=== PATIENT | male | born 1965 | race Caucasian/White ===

== ENCOUNTER 2025-01-17 23:25 | Inpatient (IN) | payer OTHER ==
[~2025-01-17] VITALS: Ht 195.6 cm; Wt 127.7 kg
[~2025-01-17 23:25] MED LIST: ALBU90OI6 INH; CIPR500 PO; GABA400 PO; GLYB5 PO; INSULANPEN SC; METF500 PO; [UNRECOGNIZED DRUG - REMARK]
[2025-01-18] VITALS (18 sets, daily range): BP systolic 101–151; BP diastolic 66–100
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
[2025-01-18] MEDS ORDERED: Ondansetron HCl 2 MG / ML 2ML Vial IV PRN (01:30)
[2025-01-18] MEDS ORDERED: FLU VACC TS2025-26(6MOS UP)/PF 45 MCG/0.5 ML SYRINGE IM SCH (01:30)
[2025-01-18] MEDS ORDERED: FentaNYL Citrate 50 MCG/ML 2 ML Injection IV PRN (01:30)
[2025-01-18 01:32] LABS: BASOPHILS ABSOLUTE AUTO 0.07 K/mm3 (0.00-0.23); BASOPHILS PERCENT AUTO 1 % (0-2); EOSINOPHILS ABSOLUTE AUTO 0.07 K/mm3 (0.00-0.68); EOSINOPHILS PERCENT AUTO 1 % (0-6); Hematocrit 38.7 % (37.0-53.0); Hemoglobin 13.6 g/dL (13.5-17.5); IMMATURE GRAN ABSOLUTE AUTO 0.62 K/mm3 (0.00-0.10); IMMATURE GRAN PERCENT AUTO 4 % (0-1); LYMPHOCYTES ABSOLUTE AUTO 1.39 K/mm3 (0.84-5.20); LYMPHOCYTES PERCENT AUTO 9 % (21-46); MONOCYTES ABSOLUTE AUTO 1.50 K/mm3 (0.16-1.47); MONOCYTES PERCENT AUTO 10 % (4-13); Mean Corpuscular HGB Conc 35.1 g/dL (31.5-36.5); Mean Corpuscular Volume 84 fL (80-100); NEUTROPHILS ABSOLUTE AUTO 11.31 K/mm3 (1.96-9.15); NEUTROPHILS PERCENT AUTO 76 % (41-73); NRBC ABSOLUTE 0.00 K/mm3 (0.00-0.02); NRBC Auto 0.0 /100 WBC (0.0-0.2); Platelet Count 283 K/mm3 (150-400); RDW Coefficient Variation 12.6 % (11.7-14.2); RDW Standard Deviation 38.4 fL (35.1-46.3)
[2025-01-18] MEDS ORDERED: NS 1,000 ML IV SCH (01:35)
[2025-01-18 01:52] LABS: Prothrombin Time Results 11.8 Sec (9.7-11.5)
[2025-01-18 01:57] LABS: Magnesium, Blood 1.9 mg/dL (1.6-2.4)
[2025-01-18] MEDS ORDERED: Vancomycin (Pharmacy Consult) IV SCH (02:00)
[2025-01-18 02:16] LABS: Alanine Aminotransfer (ALT/SGP 13 U/L (12-78); Albumin, Blood 2.4 g/dL (3.4-5.0); Albumin/Globulin Ratio 0.5 (0.8-1.8); Anion Gap 14 mmol/L (3-11); Aspartate Aminotrans (AST/SGOT 6 U/L (12-37); Bilirubin, Total 0.6 mg/dL (0.1-1.0); Blood Urea Nitrogen 46 mg/dL (8-24); CO2, Blood 23 mmol/L (21-32); Calcium, Blood 9.1 mg/dL (8.5-10.1); Chloride, Blood 88 mmol/L (98-108); Creatinine, Blood 1.85 mg/dL (0.60-1.20); Globulin, Blood 4.6 g/dL (2.2-4.0); Glucose, Blood 786 mg/dL (70-99); Phosphorus, Blood 2.9 mg/dL (2.5-4.9); Potassium, Blood 4.8 mmol/L (3.5-5.5); Sodium, Blood 120 mmol/L (136-145); Total Protein, Blood 7.0 g/dL (6.4-8.2)
[2025-01-18] MEDS ORDERED: Insulin Human Regular 100 UNIT in NS 100 ML IV SCH (02:35)
[2025-01-18] MEDS ORDERED: Cefepime HCl 1,000 MG in NS 100 ML IV SCH (03:07)
--- NOTE | 2025-01-18 03:15 | NUR ---
TRANSFER TO ICU LABS RESULTED AND REPORTED TO HOSPITALIST. PATIENT TO BE TRANSFERRED TO ICU FOR INSULIN GTT. NOTIFIED PATIENT AND WHO IS AT BEDSIDE. PATIENT VOIDED APPROX 400ML URINE PRIOR TO TRANSFER. PATIENT'S WOUND BEGAN TO DRAIN SEROSANGUINEOUS, WRAPPED LIGHTLY IN ABSORBANT PAD AND SECURED. TRANSFERRED WITH NS INFUSING VIA WC BY THIS RN AND RACHEL BOLANOS WITHOUT INCIDENT. BRIEF BEDSIDE REPORT PROVIDED TO ORE GRADER.
[2025-01-18 04:28] LABS: Glucose, Blood 712 mg/dL (70-99)
[2025-01-18 05:45] LABS: Glucose, Blood 531 mg/dL (70-99)
--- NOTE | 2025-01-18 06:41 | NUR ---
End of Shift Summary Recieved pt around 0330 , insulin drip started per EMR , at .01 unit/kg for a rate of 12.5 unit/hr . Fluids continued from PCU , at bedside. In agreement with previous assesment and noteable findings charted.
[2025-01-18] MEDS ORDERED: Insulin Human Lispro 100 Units/ML 3ML Syringe SC SCH ×3 (07:30→16:30)
[2025-01-18 07:32] LABS: Anion Gap 9.0 mmol/L (3-11); Blood Urea Nitrogen 47.0 mg/dL (8-24); CO2, Blood 26.0 mmol/L (21-32); Calcium, Blood 9.7 mg/dL (8.5-10.1); Chloride, Blood 96.0 mmol/L (98-108); Creatinine, Blood 1.73 mg/dL (0.60-1.20); Glucose, Blood 282.0 mg/dL (70-99); Potassium, Blood 4.2 mmol/L (3.5-5.5); Sodium, Blood 127.0 mmol/L (136-145)
[2025-01-18] MEDS ORDERED: D5W-1/2NS 1,000 ML IV SCH (08:05)
[2025-01-18] MEDS ORDERED: Insulin Glargine-Yfgn 100 Unit/mL 3 ML SYR SC ONE (08:45)
[2025-01-18] MEDS ORDERED: Insulin Glargine 100 Unit/ML 3 ML SYR SC ONE (08:55)
[2025-01-18] MEDS ORDERED: Lactobacil 2-S.Thermo-Bifido 1 1 Cap PO SCH (09:00)
--- NOTE | 2025-01-18 12:26 | NUR ---
DR. KELLER IN TO SEE PT WITH AT BEDSIDE. PT INFORMED OF RESULTS OF XRAY AND PT WILL NEED TO SEE AN ORTHOPEDIC DOCTOR FOR AMPUTATION. PT IS AGITATED STATING HE WANTS TO LEAVE. WANTING ALL LINES AND IV'S REMOVED. SPOKE WITH PT ABOUT WAITING TO SPEAK WITH SURGEON FIRST. WHEN RN LEFT THE ROOM PT GOT OOB TO BATHROOM AND DISCONNECTED LINES. WHEN RN BACK TO THE ROOM PT SETTLED INTO BED AND ALLOWED RN TO CONNECT BACK TO THE MONITOR. R FOOT IS OPEN TO AIR FOR DOCTOR REVIEW. ALLOWING PT TO DECOMPRESS AND OFFERING ANSWERS TO ANY QUESTIONS.
--- NOTE | 2025-01-18 13:23 | NUR ---
DR. MILLER TO BEDSIDE, SPOKE WITH PT AND ABOUT OPTIONS AND NEED FOR AMPUTATION. PT AND MADE AWARE OF POTENTIAL FOR INFECTION TO SPREAD RAPIDLY AND LIFE THREATING COMPLICATIONS THAT COULD ARISE. PT AND ARE GOING TO DISCUSS IT AND WILL MAKE A DECISION.
[2025-01-18 14:23] LABS: Anion Gap 9.0 mmol/L (3-11); Blood Urea Nitrogen 45.0 mg/dL (8-24); CO2, Blood 26.0 mmol/L (21-32); Calcium, Blood 9.5 mg/dL (8.5-10.1); Chloride, Blood 96.0 mmol/L (98-108); Creatinine, Blood 1.49 mg/dL (0.60-1.20); Glucose, Blood 341.0 mg/dL (70-99); Potassium, Blood 4.5 mmol/L (3.5-5.5); Sodium, Blood 126.0 mmol/L (136-145)
--- NOTE | 2025-01-18 14:45 | NUR ---
PT'S DAUGHTER IS ON HER WAY FROM [place]. PT WILL NOT MAKE ANY DECISIONS UNTIL SHE GETS HERE AND IS EASILY AGITATED WITH ANY DESCUSSIONS ABOUT MEDICAL DECISIONS.
[2025-01-18] MEDS ORDERED: Clindamycin 900mg in D5W 50ML 50 ML IV SCH (16:00)
--- NOTE | 2025-01-18 18:01 | NUR ---
DR. MILLER CAME BY AGAIN ALE TO SPEAK WITH PT AND FAMILY ABOUT PLAN OF CARE. PT IS NOT WANTING TO GO TO OR TONIGHT. DR. MILLER SAID HE WILL TAKE HIM IN THE AM IF PT AGREES UNLESS PT BECOMES UNSTABLE DURING THE NIGHT. CALLED DR. PUGH ABOUT RISING GLUCOSE, NEW ORDERS TO RECHECK IN 2 HRS AFTER HCS GIVEN. R FOOT HAS FOUL ODOR, OOZING SEROSANG FLUID, DARKENED TISSUE TO BOTTOM OF FOOT, AND FOOT IS SWOLLEN. PT INSISTS ON GETTING OOB TO BATHROOM. FAMILY AT BEDSIDE.
[2025-01-18 19:57] LABS: Anion Gap 7.0 mmol/L (3-11); Blood Urea Nitrogen 44.0 mg/dL (8-24); CO2, Blood 27.0 mmol/L (21-32); Calcium, Blood 9.5 mg/dL (8.5-10.1); Chloride, Blood 97.0 mmol/L (98-108); Creatinine, Blood 1.45 mg/dL (0.60-1.20); Glucose, Blood 341.0 mg/dL (70-99); Potassium, Blood 4.3 mmol/L (3.5-5.5); Sodium, Blood 127.0 mmol/L (136-145)
[2025-01-18] MEDS ORDERED: Insulin Glargine 100 Unit/ML 3 ML SYR SC SCH (21:00)
[2025-01-19] VITALS (25 sets, daily range): BP systolic 130–173; BP diastolic 75–108
--- NOTE | 2025-01-19 05:46 | NUR ---
SHIFT SUMMARY PT A&O X4, ANXIOUS, IRRITABLE AT TIMES. FAMILY AT BEDSIDE T/O NIGHT. HR IN THE 90'S-100'S, SR-ST. TELE ALARMED FOR ST ELEVATION, EKG COMPLETED SHOWED SINUS RHYTHM WITH FUSION COMPLEXES AND R BBB. PT DENIES ANY CP/PRESSURE, BP STABLE T/O NIGHT. PT ON RA WHILE AWAKE, 2L VIA NC WITH SLEEP. ON 2L AT THIS TIME, SpO2 >92%. PT HAS MULTIPLE WOUNDS ON RIGHT FOOT, ORTHO CONSULTED. PT NPO SINCE MIDNIGHT FOR PROCEDURE THIS AM. PT RESTING IN BED AT THIS TIME. CALL LIGHT IN REACH. WILL MONITOR PT AND REPORT TO ONCOMING RN.
[2025-01-19 07:43] LABS: BASOPHILS ABSOLUTE AUTO 0.11 K/mm3 (0.00-0.23); BASOPHILS PERCENT AUTO 1 % (0-2); EOSINOPHILS ABSOLUTE AUTO 0.20 K/mm3 (0.00-0.68); EOSINOPHILS PERCENT AUTO 1 % (0-6); Hematocrit 39.0 % (37.0-53.0); Hemoglobin 13.1 g/dL (13.5-17.5); IMMATURE GRAN ABSOLUTE AUTO 0.67 K/mm3 (0.00-0.10); IMMATURE GRAN PERCENT AUTO 5 % (0-1); LYMPHOCYTES ABSOLUTE AUTO 1.70 K/mm3 (0.84-5.20); LYMPHOCYTES PERCENT AUTO 11 % (21-46); MONOCYTES ABSOLUTE AUTO 1.36 K/mm3 (0.16-1.47); MONOCYTES PERCENT AUTO 9 % (4-13); Mean Corpuscular HGB Conc 33.6 g/dL (31.5-36.5); Mean Corpuscular Volume 87 fL (80-100); NEUTROPHILS ABSOLUTE AUTO 10.97 K/mm3 (1.96-9.15); NEUTROPHILS PERCENT AUTO 73 % (41-73); NRBC ABSOLUTE 0.00 K/mm3 (0.00-0.02); NRBC Auto 0.0 /100 WBC (0.0-0.2); Platelet Count 323 K/mm3 (150-400); RDW Coefficient Variation 12.9 % (11.7-14.2); RDW Standard Deviation 40.6 fL (35.1-46.3)
[2025-01-19 08:05] LABS: Anion Gap 8.0 mmol/L (3-11); Blood Urea Nitrogen 38.0 mg/dL (8-24); CO2, Blood 28.0 mmol/L (21-32); Calcium, Blood 9.6 mg/dL (8.5-10.1); Chloride, Blood 99.0 mmol/L (98-108); Creatinine, Blood 1.3 mg/dL (0.60-1.20); Glucose, Blood 336.0 mg/dL (70-99); Potassium, Blood 4.3 mmol/L (3.5-5.5); Sodium, Blood 131.0 mmol/L (136-145)
--- NOTE | 2025-01-19 08:32 | NUR ---
PT IS VERY AGITATED THIS AM. SPENT TIME IN ROOM TRYING TO OFFER REASSURANCE AND EDUCATION ABOUT PROCEDURE TODAY BUT PT IS UNRECEPTIVE AND BECOMES MORE AGITATED. HAD HEARING IMPAIRED ITINERANT TEACHER AND HEAD RIGGER AT BEDSIDE TO ASSIST BUT PT CONTINUES TO BE AGITATED. CALLED AND WHO CAME TO THE BEDSIDE. PT REFUSED TO SPEAK WITH THEM AT THAT MOMENT. BOTH DR. PUGH AND DR. JESUS SPOKE WITH AND DAUGHTER OUTSIDE OF THE ROOM TO EDUCATE AND ANSWER ANY QUESTIONS.
[2025-01-19] MEDS ORDERED: Enoxaparin 40 MG/0.4 ML SYR SC SCH (09:00)
[2025-01-19] MEDS ORDERED: LORazepam 2 MG/ML 1ML Injection IV PRN (10:05)
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
[2025-01-19] MEDS ORDERED: LORazepam 2 MG/ML 1ML Injection IV ONE (11:40)
[2025-01-19] MEDS ORDERED: Tranexamic Acid 100 ML IV SCH (12:20)
[2025-01-19] MEDS ORDERED: FentaNYL Citrate 50 MCG/ML 2 ML Injection ONE (12:39)
--- NOTE | 2025-01-19 12:40 | NUR ---
PT TAKEN TO OR VIA BED BY OR TEAM.
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
[2025-01-19] MEDS ORDERED: Ondansetron HCl 2 MG / ML 2ML Vial ONE (12:50)
[2025-01-19] MEDS ORDERED: Metoclopramide HCl 5MG / ML 2ML Vial ONE (12:50)
[2025-01-19] MEDS ORDERED: Phenylephrine HCl 10mg/ml 1 ml Vial ONE (12:53)
[2025-01-19] MEDS ORDERED: HYDROmorphone HCl/Pf 1MG SYR ONE (12:54)
[2025-01-19] MEDS ORDERED: CeFAZolin Sodium 1000 mg Vial ONE (12:56)
--- NOTE | 2025-01-19 13:07 | NUR ---
01/19/25 1307 Britta Chapa 3GM IV GIVEN BY LI SUAZO AT 1250 IN THE OPERATING ROOM.
[2025-01-19] MEDS ORDERED: OxyCODONE 5 mg/Acetamin 325 mg TABLET PO PRN (16:45)
[2025-01-19] MEDS ORDERED: HYDROmorphone HCl/Pf 1MG SYR IV PRN (16:45)
--- NOTE | 2025-01-19 18:21 | NUR ---
SUMMARY PT A/O X4. WENT TO OR TODAY AT 1240 FOR AMPUTATION OF R FOOT AND ANKLE. RETURNED BACK TO ICU AT 1415. PT IS AWAKE, TOLERATING DINNER. HAD SOME PAIN TO RLE AFTER RETURN, FENTANYL DIDN'T WORK, CALLED DR. PUGH WHO ORDERED DILAUDID AND PERCOCET. DILAUDID WORKED WELL FOR PT AND EDUCATED ABOUT STARTING PO FORM OF PAIN MEDS AFTER STOMACH IS SETTLED. R LEG HAS LC BANDAGE TO STUMP THAT IS C/D/I. FAMILY AT BEDSIDE ALL DAY. NO SIGN OF DISTRESS.
--- NOTE | 2025-01-19 20:00 | NUR ---
ASSUMPTION OF CARE: ASSUMED CARE AT START OF SHIFT (1899). REPORT RECIEVED FROM DAY SHIFT RN. PT IS DOING WELL AND RESTING IN BED. PT IS ALERT AND FOLLOWING. PT STATES HAVING PAIN AT SURGERY SITE BUT NO CP OR SOB A THIS TIME. PT IS RECEIVING PAIN MEDS PER EMR ORDERS. LUNG SOUND ARE DIMINSHED, RA WITH SPO2 >90%, USES NC @ 3LPM WHEN SLEEPING BECAUSE SPO2 WILL DROP INTO THE 80'S. SINUS RYTHM WITH SBP: 140'S MAP >65 HR: 80'S. IV: PERIPHERAL IN LAC. PT HAD R BKA SURGERY EARLIER TODAY, SITE IS COVERED WITH LC BANDAGE. PT IS ABLE TO USE BEDSIDE URINAL. IS AT BEDISE WITH PT. LINES AND CORDS PLACED OUT OF REACH. CALL LIGHT PLACED WITHIN REACH.
[2025-01-19 21:44] LABS: Vancomycin, Trough 12.8 ug/mL (5.0-10.0)
[2025-01-20] VITALS (29 sets, daily range): BP systolic 122–167; BP diastolic 59–99
[2025-01-20 04:09] LABS: Hematocrit 36.9 % (37.0-53.0); Hemoglobin 12.2 g/dL (13.5-17.5); Mean Corpuscular HGB Conc 33.1 g/dL (31.5-36.5); Mean Corpuscular Volume 87 fL (80-100); NRBC ABSOLUTE 0.00 K/mm3 (0.00-0.02); NRBC Auto 0.0 /100 WBC (0.0-0.2); Platelet Count 300 K/mm3 (150-400); RDW Coefficient Variation 13.0 % (11.7-14.2); RDW Standard Deviation 41.1 fL (35.1-46.3)
[2025-01-20 04:30] LABS: Alanine Aminotransfer (ALT/SGP 20.0 U/L (12-78); Albumin, Blood 2.1 g/dL (3.4-5.0); Albumin/Globulin Ratio 0.4 (0.8-1.8); Anion Gap 9.0 mmol/L (3-11); Aspartate Aminotrans (AST/SGOT 33.0 U/L (12-37); Bilirubin, Total 0.4 mg/dL (0.1-1.0); Blood Urea Nitrogen 32.0 mg/dL (8-24); CO2, Blood 27.0 mmol/L (21-32); Calcium, Blood 9.0 mg/dL (8.5-10.1); Chloride, Blood 100.0 mmol/L (98-108); Creatinine, Blood 1.18 mg/dL (0.60-1.20); Globulin, Blood 4.9 g/dL (2.2-4.0); Glucose, Blood 182.0 mg/dL (70-99); Potassium, Blood 4.0 mmol/L (3.5-5.5); Sodium, Blood 132.0 mmol/L (136-145); Total Protein, Blood 7.0 g/dL (6.4-8.2)
[2025-01-20 04:33] LABS: BAND PERCENT MAN 4 % (0-8); BASOPHILS ABSOLUTE MAN 0.00 K/mm3 (0.00-0.23); BASOPHILS PERCENT MAN 0 % (0-2); EOSINOPHILS ABSOLUTE MAN 0.39 K/mm3 (0.00-0.68); EOSINOPHILS PERCENT MAN 3 % (0-6); LYMPHOCYTES ABSOLUTE MAN 0.93 K/mm3 (0.84-5.20); LYMPHOCYTES PERCENT MAN 7 % (21-46); METAMYELOCYTE ABSOLUTE MAN 0.13 K/mm3 (0.00-0.00); METAMYELOCYTE PERCENT MAN 1 % (0-0); MONOCYTES ABSOLUTE MAN 1.32 K/mm3 (0.16-1.47); MONOCYTES PERCENT MAN 10 % (4-13); MYELOCYTE ABSOLUTE MAN 0.13 K/mm3 (0.00-0.00); MYELOCYTE PERCENT MAN 1 % (0-0); NEUTROPHILS ABSOLUTE MAN 10.36 K/mm3 (1.96-9.15); SEG NEUTROPHILS PERCENT MAN 74 % (41-73)
--- NOTE | 2025-01-20 05:58 | NUR ---
SHIFT SUMMARY: PT IS DOING WELL AND RESTING IN BED. NO ACUTE CHANGES THROUGHOUT THE SHIFT. VITAL SIGNS REMAIN STABLE. PT IS IN PAIN FROM R BKA SURGERY AND RECEIVING PAIN MEDS PER EMR ORDERS. PT ABLE TO REPOSITION SELF IN BED AND WILL CONTINUOUSLY TURN FROM SIDE TO SIDE TRYING TO FIND A COMFORTABLE POSITON. PT IS EASILY AGITATED/FRUSTRATED/IMPLUSIVE AND WILL START RIPPING OFF CARIDIAC MONITOR LEADS AND NC TUBING. PT'S IS AT BEDSIDE WITH PT AND IS ABLE TO HELP CALM THE PT DOWN. CALL LIGHT IS PLACED WITHIN REACH, BUT PT REFUSES TO USE CALL LIGHT AND WILL START YELLING/CURSING/THROWING THINGS WHEN THEY NEED HELP.
[2025-01-20 08:34] LABS: Source, Urine Clean Catch
[2025-01-20 08:43] LABS: Bilirubin, Urine Neg (Neg); Color, Urine Yellow (P-Yellow); Glucose Qualitative, Urine 1+ (Neg); Ketones, Urine 1+ (Neg); Leukocyte Esterase, Urine 2+ (Neg); Protein, Urine 2+ (Neg); Specific Gravity, Urine 1.020 (1.003-1.022); Urobilinogen, Urine NORM (Normal)
[2025-01-20] MEDS ORDERED: Insulin Human Lispro 100 Units/ML 3ML Syringe SC SCH ×2 (11:30→12:30)
--- NOTE | 2025-01-20 13:34 | NUR ---
ASSUMPTION OF CARE ASSUMED CARE OF PT AT START OF SHIFT APPROX 0700. PT IS RESTING IN BED WITH AT BEDSIDE. PT MOOD REMAINS LABILE, BECOMES AGITATED/IRRITABLE AT INTERVALS BUT IS ALERT AND ABLE TO FOLLOW DIRECTIONS. BP STABLE WITH MAP >65 AND SPO2 >90% ON RA, LUNG SOUNDS ARE CLEAR BUT DIMINISHED THROUGHOUT. HAS NC AT 3L FOR SLEEPING BUT BECOMES AGITATED AND REMOVES IT AFTER A FEW MINUTES. HAD RIGHT BKA 01/19/25, SURGICAL SITE HAS LC WRAP OVER IT. PT HAS SOME SURGICAL SITE PAIN THAT IS BEING MEDICATED PER EMAR, DENIES CP, SOB AT THIS TIME. CALL LIGHT IS WITHIN REACH, PT WILL NOT USE IT, INSTEAD SHOUTS FROM BED OR SENDS TO NURSE'S STATION, WILL CONTINUE TO PROVIDE EDUCATION ABOUT CALL LIGHT USE.
--- NOTE | 2025-01-20 13:40 | NUR ---
DR MILLER TO BEDSIDE DR MILLER CAME BY TO SEE PT APPROX 1115. PT WAS SLEEPING AND NOT AT BEDSIDE AT THIS TIME. STATED HE WOULD BE COMING BACK TOMORROW TO PERFORM DRESSING CHANGE ON PT SURGICAL SITE.
--- NOTE | 2025-01-20 17:15 | NUR ---
REPORT CALLED CALLED REPORT TO RM 344 NURSE APPROX 0334. COLLECTED PT BELONGINGS AND ACCOMPANIED UPSTAIRS.
--- NOTE | 2025-01-20 18:10 | NUR ---
Received report from MARY LOU Conn in ICU and assumed care of patient at 1740. Patient oriented to room, call light. Room temperature too hot for patient and call made to facilities and temperature reduced per his request. Patient with 10/10 pain and medicated per EMAR. Telemetry box arrived and placed on patient. Patient and spouse encouraged to call for any needs or requests; call light within reach, bed in lowest position. Will continue to monitor until next shift nurse arrives and report is given.
--- NOTE | 2025-01-20 19:37 | NUR ---
PT DECLINED DULOXETINE A NEW MEDICATION. HE STATED THAT HE DOES NOT UNDERSTAND WHY THE DR. WANTS HIM TO TAKE IT. LN GAVE WHAT THE MEDICATION IS NORMALY GIVEN FOR. DEPRESSION, ANIXETY AND PAIN. BUT LN WAS UNABLE TO FIND RATIONAL IN MD NOTES TO GIVE TO PT.
[2025-01-20] MEDS ORDERED: DULoxetine HCL 30 MG Cap DR PO SCH (21:00)
[2025-01-21 05:10] VITALS: BP 141/85
[2025-01-21] MEDS ORDERED: HYDROmorphone HCl/Pf 1MG SYR IV PRN (07:25)
[2025-01-21 07:33] VITALS: BP 166/87
[2025-01-21 08:55] LABS: BASOPHILS ABSOLUTE AUTO 0.08 K/mm3 (0.00-0.23); BASOPHILS PERCENT AUTO 1 % (0-2); EOSINOPHILS ABSOLUTE AUTO 0.21 K/mm3 (0.00-0.68); EOSINOPHILS PERCENT AUTO 2 % (0-6); Hematocrit 39.0 % (37.0-53.0); Hemoglobin 13.3 g/dL (13.5-17.5); IMMATURE GRAN ABSOLUTE AUTO 0.54 K/mm3 (0.00-0.10); IMMATURE GRAN PERCENT AUTO 5 % (0-1); LYMPHOCYTES ABSOLUTE AUTO 1.52 K/mm3 (0.84-5.20); LYMPHOCYTES PERCENT AUTO 13 % (21-46); MONOCYTES ABSOLUTE AUTO 0.84 K/mm3 (0.16-1.47); MONOCYTES PERCENT AUTO 7 % (4-13); Mean Corpuscular HGB Conc 34.1 g/dL (31.5-36.5); Mean Corpuscular Volume 86 fL (80-100); NEUTROPHILS ABSOLUTE AUTO 8.14 K/mm3 (1.96-9.15); NEUTROPHILS PERCENT AUTO 72 % (41-73); NRBC ABSOLUTE 0.00 K/mm3 (0.00-0.02); NRBC Auto 0.0 /100 WBC (0.0-0.2); Platelet Count 322 K/mm3 (150-400); RDW Coefficient Variation 12.9 % (11.7-14.2); RDW Standard Deviation 39.8 fL (35.1-46.3)
[2025-01-21 09:18] LABS: Alanine Aminotransfer (ALT/SGP 32.0 U/L (12-78); Albumin, Blood 2.1 g/dL (3.4-5.0); Albumin/Globulin Ratio 0.4 (0.8-1.8); Anion Gap 8.0 mmol/L (3-11); Aspartate Aminotrans (AST/SGOT 58.0 U/L (12-37); Bilirubin, Total 0.4 mg/dL (0.1-1.0); Blood Urea Nitrogen 18.0 mg/dL (8-24); CO2, Blood 29.0 mmol/L (21-32); Calcium, Blood 9.2 mg/dL (8.5-10.1); Chloride, Blood 98.0 mmol/L (98-108); Creatinine, Blood 1.07 mg/dL (0.60-1.20); Globulin, Blood 5.5 g/dL (2.2-4.0); Glucose, Blood 213.0 mg/dL (70-99); Potassium, Blood 4.0 mmol/L (3.5-5.5); Sodium, Blood 131.0 mmol/L (136-145); Total Protein, Blood 7.6 g/dL (6.4-8.2)
--- NOTE | 2025-01-21 15:31 | NUR ---
ASSUMED CARE OF PT A/O X 4 FLAT AFFECT, AT BEDSIDE, PT C/O CONSTANT PAIN TO RIGHT STUMP SITE AND HAS BEEN MEDICATED PER MAR. PT IN A VERY BAD MOOD AND DIESNT WANT TO BE BOTHERED THOUGH IS COOPERATIVE WITH CARE. CALL LIGHT WITHIN REACH, PT AND FAMILY MAKE NEEDS KNOWN, HAS BEEN VERY HELPFUL WITH ASSISTING PT.
--- NOTE | 2025-01-21 15:33 | NUR ---
1030 DR BAXTER INTO SEE PT DRESSING CHANGE DONE, PICTURE TAKEN AND PLACED IN CHART, DRESSING REPLACED WITH ABD AND STUMP SOCK. CALL LIGHT WITHIN REACH.
[2025-01-21 15:50] VITALS: BP 165/87
--- NOTE | 2025-01-21 17:24 | NUR ---
DR PARKS NOTIFIED. NOTIFIED OF FSBS 423, NO NEW MEDS ORDERED, PT COVERED WITH ROUTINE INSULIN WILL REASSESS.
[2025-01-21] MEDS ORDERED: Insulin Human Lispro 100 Units/ML 3ML Syringe SC ONE (18:30)
[2025-01-21 19:39] VITALS: BP 151/88
--- NOTE | 2025-01-21 19:47 | NUR ---
clarification Dr Begum notified not Mateo again Dr Bruce was notified of pt blood sugar increasing to 451. additional 10 units insulin given, pt to be reassessed this evening
--- NOTE | 2025-01-21 21:58 | NUR ---
THIS TOOL MACHINIST SPOKE OVER THE PHONE WITH NP. DALEY, ON-CALL HOSPITALIST REGARDING PT'S BG 429, LANTUS 30U AND HUMALOG 5U PER HIGH CORRECTION SCALE ADMINISTERED AT . NOTIFIED NP. DALEY. NO NEW ORDERS AT THIS TIME. RECHECKING THE BG @2200. PROVIDER AWARE.
--- NOTE | 2025-01-22 03:25 | NUR ---
SHIFT SUMMARY NO ACUTE EVENTS DURING THIS SHIFT. PT'S BG @HS ELEVATED @429, LANTUS AND HIGH CORRECTION SCALE HUMALOG ADMINISTERED ORDERED. PROVIDER NOTIFIED. TYLER @[phone]. PROVIDER NOTIFIED, NO NEW ORDERS AT THAT TIME. PT IS A/O X4, PLEASANT AND COOPERATIVE WITH CARE. BY THE BEDSIDE T/O THE NIGHT. RIGHT BKA POD2, DRESSING C/D/I. PT C/O PAIN 7-01/19, MEDICATED WITH PRN PO OXYCODONE WITH GOOD EFFECTIVNESS. BED AT THE LOWEST POSITION, CALL LIGHT W/I REACH.
[2025-01-22 05:33] VITALS: BP 135/80
[2025-01-22 05:56] LABS: Hematocrit 40.7 % (37.0-53.0); Hemoglobin 13.4 g/dL (13.5-17.5); Mean Corpuscular HGB Conc 32.9 g/dL (31.5-36.5); Mean Corpuscular Volume 89 fL (80-100); NRBC ABSOLUTE 0.00 K/mm3 (0.00-0.02); NRBC Auto 0.0 /100 WBC (0.0-0.2); Platelet Count 322 K/mm3 (150-400); RDW Coefficient Variation 12.7 % (11.7-14.2); RDW Standard Deviation 41.6 fL (35.1-46.3)
[2025-01-22 06:14] LABS: BAND PERCENT MAN 5 % (0-8); BASOPHILS ABSOLUTE MAN 0.00 K/mm3 (0.00-0.23); BASOPHILS PERCENT MAN 0 % (0-2); EOSINOPHILS ABSOLUTE MAN 0.12 K/mm3 (0.00-0.68); EOSINOPHILS PERCENT MAN 1 % (0-6); LYMPHOCYTES ABSOLUTE MAN 2.49 K/mm3 (0.84-5.20); LYMPHOCYTES PERCENT MAN 20 % (21-46); MONOCYTES ABSOLUTE MAN 0.74 K/mm3 (0.16-1.47); MONOCYTES PERCENT MAN 6 % (4-13); MYELOCYTE ABSOLUTE MAN 0.12 K/mm3 (0.00-0.00); MYELOCYTE PERCENT MAN 1 % (0-0); NEUTROPHILS ABSOLUTE MAN 8.99 K/mm3 (1.96-9.15); SEG NEUTROPHILS PERCENT MAN 67 % (41-73)
[2025-01-22 06:20] LABS: Alanine Aminotransfer (ALT/SGP 37.0 U/L (12-78); Albumin, Blood 2.1 g/dL (3.4-5.0); Albumin/Globulin Ratio 0.4 (0.8-1.8); Anion Gap 6.0 mmol/L (3-11); Aspartate Aminotrans (AST/SGOT 58.0 U/L (12-37); Bilirubin, Total 0.4 mg/dL (0.1-1.0); Blood Urea Nitrogen 18.0 mg/dL (8-24); CO2, Blood 30.0 mmol/L (21-32); Calcium, Blood 9.4 mg/dL (8.5-10.1); Chloride, Blood 99.0 mmol/L (98-108); Creatinine, Blood 1.13 mg/dL (0.60-1.20); Globulin, Blood 5.6 g/dL (2.2-4.0); Glucose, Blood 188.0 mg/dL (70-99); Potassium, Blood 4.3 mmol/L (3.5-5.5); Sodium, Blood 131.0 mmol/L (136-145); Total Protein, Blood 7.7 g/dL (6.4-8.2)
[2025-01-22 07:37] VITALS: BP 134/87
[2025-01-22] MEDS ORDERED: Insulin Human Lispro 100 Units/ML 3ML Syringe SC SCH (08:30)
[2025-01-22] MEDS ORDERED: METF500 PO (08:45)
[2025-01-22] MEDS ORDERED: DULO30 PO (08:49)
[2025-01-22] MEDS ORDERED: REZVOGLAR100 UNIT/1 SC (08:49)
[2025-01-22] MEDS ORDERED: LOSA50 PO (08:50)
[2025-01-22] MEDS ORDERED: NAPR500 PO (08:50)
[2025-01-22] MEDS ORDERED: ATOR40TA PO (08:51)
[2025-01-22] MEDS ORDERED: OMEP20ER PO (08:51)
[2025-01-22] MEDS ORDERED: DULoxetine HCL 30 MG Cap DR PO SCH (09:00)
[2025-01-22] MEDS ORDERED: Albuterol HFA200 ACT/6.7 GM INH INH PRN (10:25)
[2025-01-22] MEDS ORDERED: MetFORMIN HCl 500 mg PO SCH ×2 (14:00→21:00)
[2025-01-22] MEDS ORDERED: MIRALAX17 GM PO (14:52)
[2025-01-22] MEDS ORDERED: OXYC5 PO (14:52)
--- NOTE | 2025-01-22 16:44 | NUR ---
DISCHARGE NOTE PT D/C HOME AT 1645. PT AND PT'S PROVIDED W/ VERBAL AND WRITTEN INSTRUCTIONS AND REPORTED UNDERSTANDING. PT A&OX4, VSS, PIVOT ASSIST TO W/C, TOLERATING PO, VOIDING, AND PAIN MANAGED. BELONGINGS WERE RETURNED AND WOUND DRESSINGS PROVIDED. PT ESCOURTED OUT VIA W/C BY PT'S . HARD SCRIPT GIVEN, COPY PLACED IN CHART.
[2025-01-23] MEDS ORDERED: MetFORMIN HCl 500 mg PO SCH (09:00)
== END 2025-01-22 16:45 | disposition home or self-care (01) | DRG 853 ==
LOC: PCU 23:25 → ICUE 01-18 00:55 → PCU 01-18 00:55 → ICUE 01-18 03:15 → MEDS 01-20 17:34 → ENPENDDIS 01-22 14:29 → MEDS 01-22 16:45
PROVIDERS: Internal Medicine; Orthopaedic Surgery; Student in an Organized Health Care Education/Training Program; ADMIT Student in an Organized Health Care Education/Training Program
PROC: 3E03329 Introduction of Other Anti-infective into Peripheral Vein, Percutaneous Approach (ICD-10-PCS; 2025-01-18)
PROC: 3E02340 Introduction of Influenza Vaccine into Muscle, Percutaneous Approach (ICD-10-PCS; 2025-01-18)
PROC: 0Y6H0Z3 Detachment at Right Lower Leg, Low, Open Approach (ICD-10-PCS; principal; 2025-01-19 12:30)
DX: A40.8 Other streptococcal sepsis (principal); A48.0 Gas gangrene; M72.6 Necrotizing fasciitis; N17.9 Acute kidney failure, unspecified; E11.52 Type 2 diabetes mellitus with diabetic peripheral angiopathy with gangrene; E11.621 Type 2 diabetes mellitus with foot ulcer; L97.519 Non-pressure chronic ulcer of other part of right foot with unspecified severity; E11.65 Type 2 diabetes mellitus with hyperglycemia; E87.5 Hyperkalemia; I10 Essential (primary) hypertension; E66.9 Obesity, unspecified; J44.89 Other specified chronic obstructive pulmonary disease; M10.9 Gout, unspecified; E78.5 Hyperlipidemia, unspecified; G47.33 Obstructive sleep apnea (adult) (pediatric); F12.90 Cannabis use, unspecified, uncomplicated; R45.1 Restlessness and agitation; L97.529 Non-pressure chronic ulcer of other part of left foot with unspecified severity; E11.610 Type 2 diabetes mellitus with diabetic neuropathic arthropathy; Z79.51 Long term (current) use of inhaled steroids; Z79.899 Other long term (current) drug therapy; Z79.84 Long term (current) use of oral hypoglycemic drugs; Z79.4 Long term (current) use of insulin
CPT/HCPCS: 36415; 73630; 80048; 80053; 80202; 81001; 82947; 83036; 83735; 83880; 84100; 85025; 85610; 87070; 87077; 87086; 87147; 87186; 87205; 88307; 93005; 93010; 94760; 97110; 97162; 97165; 97530; A9270; J0690; J0692; J1171; J1650; J1815; J2060; J2185; J2371; J2405; J2704; J2765; J3010; J3373; J7030; J7040; J7042; J7050

== ENCOUNTER 2025-02-16 06:57 | Emergency (ER) | payer OTHER ==
[~2025-02-16] VITALS: Ht 195.6 cm; Wt 129.3 kg
[~2025-02-16 06:57] MED LIST changes: +ATOR40TA PO; +DULO30 PO; +LOSA50 PO; +MIRALAX17 GM PO; +NAPR500 PO; +OMEP20ER PO; +OXYC5 PO; +REZVOGLAR100 UNIT/1 SC
[2025-02-16 07:25] VITALS: BP 148/82
[2025-02-16 08:10] LABS: BASOPHILS ABSOLUTE AUTO 0.07 K/mm3 (0.00-0.23); BASOPHILS PERCENT AUTO 1 % (0-2); EOSINOPHILS ABSOLUTE AUTO 0.30 K/mm3 (0.00-0.68); EOSINOPHILS PERCENT AUTO 3 % (0-6); Hematocrit 36.0 % (37.0-53.0); Hemoglobin 11.7 g/dL (13.5-17.5); IMMATURE GRAN ABSOLUTE AUTO 0.16 K/mm3 (0.00-0.10); IMMATURE GRAN PERCENT AUTO 2 % (0-1); LYMPHOCYTES ABSOLUTE AUTO 1.24 K/mm3 (0.84-5.20); LYMPHOCYTES PERCENT AUTO 12 % (21-46); MONOCYTES ABSOLUTE AUTO 0.74 K/mm3 (0.16-1.47); MONOCYTES PERCENT AUTO 7 % (4-13); Mean Corpuscular HGB Conc 32.5 g/dL (31.5-36.5); Mean Corpuscular Volume 87 fL (80-100); NEUTROPHILS ABSOLUTE AUTO 7.90 K/mm3 (1.96-9.15); NEUTROPHILS PERCENT AUTO 76 % (41-73); NRBC ABSOLUTE 0.00 K/mm3 (0.00-0.02); NRBC Auto 0.0 /100 WBC (0.0-0.2); Platelet Count 260 K/mm3 (150-400); RDW Coefficient Variation 13.2 % (11.7-14.2); RDW Standard Deviation 41.9 fL (35.1-46.3)
[2025-02-16 08:29] LABS: Alanine Aminotransfer (ALT/SGP 15.0 U/L (12-78); Albumin, Blood 3.0 g/dL (3.4-5.0); Albumin/Globulin Ratio 0.6 (0.8-1.8); Anion Gap 7.0 mmol/L (3-11); Aspartate Aminotrans (AST/SGOT 8.0 U/L (12-37); Bilirubin, Total 0.4 mg/dL (0.1-1.0); Blood Urea Nitrogen 36.0 mg/dL (8-24); CO2, Blood 31.0 mmol/L (21-32); Calcium, Blood 9.7 mg/dL (8.5-10.1); Chloride, Blood 98.0 mmol/L (98-108); Creatinine, Blood 1.22 mg/dL (0.60-1.20); Globulin, Blood 5.3 g/dL (2.2-4.0); Glucose, Blood 395.0 mg/dL (70-99); Potassium, Blood 5.1 mmol/L (3.5-5.5); Sodium, Blood 131.0 mmol/L (136-145); Total Protein, Blood 8.3 g/dL (6.4-8.2)
== END 2025-02-16 09:53 | disposition left against medical advice (07) ==
LOC: ER 06:57
PROVIDERS: Emergency Medicine
DX: M25.561 Pain in right knee (principal); Z53.21 Procedure and treatment not carried out due to patient leaving prior to being seen by health care provider
CPT/HCPCS: 80053; 85025

== ENCOUNTER 2025-02-17 21:08 | Inpatient (IN) | payer OTHER ==
[~2025-02-17] VITALS: Ht 188 cm; Wt 132.0 kg
[2025-02-17 22:28] VITALS: BP 129/94
--- NOTE | 2025-02-17 22:35 | NUR ---
PT ARRIVES VIA GURNEY WITH AMBULANCE CREW. PT ORIENTED TO ROOM. PT BG ASSESSED DUE TO HIGH BLOOD GLUCOSE AT TRANSFERRING FACILITY AND FAIRLY LARGE DECREASE IN GLUCOSE LEVELS. BLOOD GLUCOSE LEVELS 278. CALL TO HOSPITALIST FOR ADMISSION ASSESSMENT. PT STATES TO THIS RN THAT HE DOES NOT WANT SURGERY UNDER ANY CIRCUMSTANCES. CHARGE NURSE AND PROVIDER AWARE.
--- NOTE | 2025-02-17 23:16 | NUR ---
ADMITTING PROVIDER AT BEDSIDE.
[2025-02-18] VITALS (18 sets, daily range): BP systolic 79–171; BP diastolic 49–93
[2025-02-18] MEDS ORDERED: Vancomycin (Pharmacy Consult) IV SCH (00:05)
[2025-02-18] MEDS ORDERED: FLU VACC TS2025-26(6MOS UP)/PF 45 MCG/0.5 ML SYRINGE IM ONE (00:05)
[2025-02-18] MEDS ORDERED: Piperacillin/Tazobactam Sod 4.5 GM in NS 100 ML IV SCH (00:09)
[2025-02-18] MEDS ORDERED: Clindamycin 900mg in D5W 50ML 50 ML IV SCH (00:38)
[2025-02-18] MEDS ORDERED: FentaNYL Citrate 50 MCG/ML 2 ML Injection IV PRN ×3 (00:40→14:40)
[2025-02-18] MEDS ORDERED: Albuterol HFA200 ACT/6.7 GM INH INH PRN (00:40)
[2025-02-18 01:06] LABS: BASOPHILS ABSOLUTE AUTO 0.04 K/mm3 (0.00-0.23); BASOPHILS PERCENT AUTO 0 % (0-2); EOSINOPHILS ABSOLUTE AUTO 0.06 K/mm3 (0.00-0.68); EOSINOPHILS PERCENT AUTO 0 % (0-6); Hematocrit 33.4 % (37.0-53.0); Hemoglobin 10.7 g/dL (13.5-17.5); IMMATURE GRAN ABSOLUTE AUTO 0.06 K/mm3 (0.00-0.10); IMMATURE GRAN PERCENT AUTO 0 % (0-1); LYMPHOCYTES ABSOLUTE AUTO 1.20 K/mm3 (0.84-5.20); LYMPHOCYTES PERCENT AUTO 9 % (21-46); MONOCYTES ABSOLUTE AUTO 0.53 K/mm3 (0.16-1.47); MONOCYTES PERCENT AUTO 4 % (4-13); Mean Corpuscular HGB Conc 32.0 g/dL (31.5-36.5); Mean Corpuscular Volume 87 fL (80-100); NEUTROPHILS ABSOLUTE AUTO 11.68 K/mm3 (1.96-9.15); NEUTROPHILS PERCENT AUTO 86 % (41-73); NRBC ABSOLUTE 0.00 K/mm3 (0.00-0.02); NRBC Auto 0.0 /100 WBC (0.0-0.2); Platelet Count 220 K/mm3 (150-400); RDW Coefficient Variation 12.9 % (11.7-14.2); RDW Standard Deviation 40.7 fL (35.1-46.3)
[2025-02-18] MEDS ORDERED: NS 1,000 ML IV SCH (01:20)
[2025-02-18 01:22] LABS: Prothrombin Time Results 11.5 Sec (9.7-11.5)
[2025-02-18 01:23] LABS: Alanine Aminotransfer (ALT/SGP 15.0 U/L (12-78); Albumin, Blood 2.4 g/dL (3.4-5.0); Albumin/Globulin Ratio 0.5 (0.8-1.8); Anion Gap 10.0 mmol/L (3-11); Aspartate Aminotrans (AST/SGOT 10.0 U/L (12-37); Bilirubin, Total 0.5 mg/dL (0.1-1.0); Blood Urea Nitrogen 29.0 mg/dL (8-24); CO2, Blood 26.0 mmol/L (21-32); Calcium, Blood 9.4 mg/dL (8.5-10.1); Chloride, Blood 99.0 mmol/L (98-108); Creatinine, Blood 1.36 mg/dL (0.60-1.20); Globulin, Blood 5.2 g/dL (2.2-4.0); Glucose, Blood 297.0 mg/dL (70-99); Potassium, Blood 4.3 mmol/L (3.5-5.5); Sodium, Blood 131.0 mmol/L (136-145); Total Protein, Blood 7.6 g/dL (6.4-8.2)
[2025-02-18] MEDS ORDERED: LORazepam 2 MG/ML 1ML Injection IV ONE ×2 (05:30→07:35)
--- NOTE | 2025-02-18 05:31 | NUR ---
SHIFT SUMMARY NO ACUTE EVENTS SINCE ARRIVAL. PT WITH MANY EPISODES OF IRRITABILITY AND AGITATION TOWARDS STAFF. THIS RN EXPLAINED TO PT THAT WE ARE WORKING TO TAKE CARE OF HIM. PT VERBALIZES UNDERSTANDING. PT NPO PENDING SURGICAL CONSULT. PT WITH EPISODE OF N/V AND CALL TO PROVIDER; ORDERS OBTAINED AND PENDING VERIFICATION FROM PHARMACY AT THE TIME OF THIS NOTE.
[2025-02-18] MEDS ORDERED: Insulin Human Lispro 100 Units/ML 3ML Syringe SC SCH ×2 (06:00→16:30)
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
[2025-02-18] MEDS ORDERED: Polyethylene Glycol 3350 17 gm PO SCH (09:00)
[2025-02-18] MEDS ORDERED: DULoxetine HCL 30 MG Cap DR PO SCH (09:00)
[2025-02-18] MEDS ORDERED: Insulin Glargine 100 Unit/ML 3 ML SYR SC SCH ×3 (09:00→21:00)
--- NOTE | 2025-02-18 09:28 | NUR ---
DR ESTRADA IN TO SEE PT.
--- NOTE | 2025-02-18 10:32 | NUR ---
DR MILLER IN TO SEE PT. NOTIFIED OF POSITIVE BLOOD CX AND WOUND CX.
--- NOTE | 2025-02-18 10:55 | NUR ---
PT REFUSED TO TAKE OFF SHORTS OR [facility].
--- NOTE | 2025-02-18 14:16 | NUR ---
PT TO SURGERY
[2025-02-18] MEDS ORDERED: Ondansetron HCl 2 MG / ML 2ML Vial IV PRN (14:35)
[2025-02-18] MEDS ORDERED: Albuterol 2.5 MG/3 ML VIAL INH PRN (14:35)
[2025-02-18] MEDS ORDERED: HYDROmorphone HCl/Pf 1MG SYR IV PRN (14:35)
[2025-02-18] MEDS ORDERED: Ondansetron HCl 2 MG / ML 2ML Vial ONE (15:06)
--- NOTE | 2025-02-18 17:12 | NUR ---
SHIFT SUMMARY ARRIVED BACK TO SURG FLOOR AT APPROXIMATELY 1545. A&O x4, VSS. S/P R I&D WASHOUT & WOUND VAC PLACEMENT. WOUND VAC COMPRESSED & DRAINING SS FLUID. PAIN CONTROLLED WELL PER EMAR. IV ABX INFUSING. SNACKS & DRINKS GIVEN. CURRENTLY RESTING IN BED w/CALL LIGHT WITHIN REACH.
[2025-02-18] MEDS ORDERED: COLCRYS0.6 M1 PO (21:15)
[2025-02-18] MEDS ORDERED: NAPROXEN500 MG PO (21:15)
[2025-02-18] MEDS ORDERED: Naproxen 250 MG TAB PO SCH (21:20)
--- NOTE | 2025-02-18 21:45 | NUR ---
PT IRRITABLE PT WITH MULTIPLE EPISODES OF AGITATION/IRRITATION/ANGER TO STAFF AND . PT AND ASKED TO DISCONTINUE LOUD BEHAVIOR AND FIGHTING WITH EACH OTHER. HYDROGRAPHICAL TECHNICAL OFFICER REQUESTS PT DISCONINUE FOUL LANGUAGE AND ANGER TOWARD STAFF. PT DISPLEASED WITH CARE AND "THOUGHT I WAS DONE WITH THIS STUFF" WHEN NEEDING TO CHECK BG AND ADMINISTER MEDICATIONS. RN EXPLAINED TO PT THAT ORDERED CARE IS TO ASSIST IN WOUND HEALING, BLOOD SUGAR REGULATION. PT REPORTS IRRITATION WITH INCORRECT MEDICATIONS FOR ARTHRITIS; RN CALL TO PROVIDER TO OBTAIN ORDERS FOR UPDATED HOME MEDS. PT MEDICATED. PT PULLED IV OUT ACCIDENTALLY AND HYDROGRAPHICAL TECHNICAL OFFICER EXPLAINED TO PT THAT MIDLINE WILL BE PLACED BY ICU STAFF. ICU STAFF AND SECURITY PRESENT DURING MIDLINE PLACEMENT DUE TO PT HEIGHTENED AGITATION. PT CALMS DOWN DURING PROCEDURE AND CONVERSED WITH SECURITY STAFF AND MOOD SHIFTED. RN TO ROOM TO MEDICATE AFTER MIDLINE PLACED AND PT RAC IV SITE WAS BLEEDING PROFUSELY AFTER IV REMOVAL. PRESSURE HELD, ARM ELEVATED UNTIL BLEEDING STOPPED; WRAPPED WITH GUAZE AND COBAN. PT CLEANSED, BED LINENS CHANGED, FLOOR AND BED CLEANSED. PT JOKING AND LAUGHING AFTER EVENTS DURING THIS TIME. PT STATES HE WILL TRY TO BE MORE PATIENT AND LESS IRRITATED. PT APOLOGIZED AND THANKED STAFF FOR CARE.
[2025-02-19] MEDS ORDERED: NS 250 ML IV PRN (01:55)
[2025-02-19 06:39] VITALS: BP 123/82
[2025-02-19 06:50] LABS: Hematocrit 27.3 % (37.0-53.0); Hemoglobin 8.7 g/dL (13.5-17.5); Mean Corpuscular HGB Conc 31.9 g/dL (31.5-36.5); Mean Corpuscular Volume 88 fL (80-100); NRBC ABSOLUTE 0.00 K/mm3 (0.00-0.02); NRBC Auto 0.0 /100 WBC (0.0-0.2); Platelet Count 153 K/mm3 (150-400); RDW Coefficient Variation 13.2 % (11.7-14.2); RDW Standard Deviation 42.5 fL (35.1-46.3)
[2025-02-19 07:08] LABS: Anion Gap 5.0 mmol/L (3-11); Blood Urea Nitrogen 25.0 mg/dL (8-24); CO2, Blood 32.0 mmol/L (21-32); Calcium, Blood 9.1 mg/dL (8.5-10.1); Chloride, Blood 99.0 mmol/L (98-108); Creatinine, Blood 1.6 mg/dL (0.60-1.20); Glucose, Blood 317.0 mg/dL (70-99); Potassium, Blood 4.3 mmol/L (3.5-5.5); Sodium, Blood 132.0 mmol/L (136-145)
--- NOTE | 2025-02-19 07:31 | NUR ---
SHIFT SUMMARY PT REQUESTED CLUSTER CARE AND TO LET HIM SLEEP AFTER POWERGLIDE PLACED. PT RESTED AND HAS IMPROVED MOOD DURING INTERACTIONS WITH STAFF. PT LABS DRAWN BY RN SENT TO LAB.
[2025-02-19] MEDS ORDERED: Colchicine 0.6 MG TAB PO SCH (09:00)
[2025-02-19 10:16] LABS: Vancomycin, Trough 20.3 ug/mL (5.0-10.0)
[2025-02-19 11:20] VITALS: BP 122/67
[2025-02-19] MEDS ORDERED: Arginine/Glutamine/Calcium Hmb 1 Packet PO SCH (13:55)
[2025-02-19 15:38] VITALS: BP 160/88
[2025-02-19] MEDS ORDERED: Insulin Glargine-Yfgn 100 Unit/mL 3 ML SYR SC ONE (17:25)
--- NOTE | 2025-02-19 18:34 | NUR ---
SHIFT SUMMARY POD 1 R BKA I&D & WOUND VAC PLACEMENT. A&O x4, VSS. GUY POWERGLIDE - PATENT & WORKING WELL. PAIN CONTROLLED WELL PER EMAR. TOLERATING REGULAR DIET WELL. R LEG w/WOUND VAC PLACEMENT, DRESSING CHANGED TODAY - SEAL PATENT & SUCTIONING. WOUND w/YELLOW/RED DISCHARGE, NO ESCHAR PRESENT. PT PLEASANT & COOPERATIVE w/CARE THIS SHIFT. CURRENTLY RESTING IN BED w/CALL LIGHT WTIHIN REACH.
[2025-02-19 19:26] VITALS: BP 164/97
[2025-02-19] MEDS ORDERED: Lactobacil 2-S.Thermo-Bifido 1 1 Cap PO SCH (21:00)
--- NOTE | 2025-02-19 21:19 | NUR ---
BG 445 BLOOD GLUCOSE 445 WITH HS CHECK. 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 DR. MOREAU NOTIFIED OF PT BLOOD GLUCOSE OF 445. RECEIVED ORDER TO GIVE 10 UNITS OF HUMALOG, AND SPOT CHECK IN [address] ALBERTZZ AWARE THAT PT RECEIVED GLARGINE 25 UNITS AT 1710.
[2025-02-19] MEDS ORDERED: Insulin Human Lispro 100 Units/ML 3ML Syringe SC ONE (21:20)
--- NOTE | 2025-02-20 00:03 | NUR ---
BG BG 437 WITH 2 HOUR APOT CHECK AFTER [address] MOREAU NOTIFIED, ORDER FOR 15 UNITS OF GLARGINE X1.
[2025-02-20] MEDS ORDERED: Insulin Glargine 100 Unit/ML 3 ML SYR SC ONE (00:37)
--- NOTE | 2025-02-20 04:02 | NUR ---
SHIFT SUMMARY PT HAS RESTED T/O THE NIGHT. APPEARED SLEEPING DURING NURSE ROUNDS WITH CHEST RISE AND FALL. BG IN THE 400'S THIS SHIFT, REQUIRING INCREASE DOSE IN INSULIN PER ORDERS. PT NON COMPLIANT WITH DIET, HE REPORTED EATING [employer] FOR DINNER. WOUND VAC IN PLACE. IV ANTIBIOTICS PER EMAR. PLAN OF CARE REMAINS UNCHANGED. BED IN LOWEST POSITION, CALL LIGHT WITHIN ERACH.
[2025-02-20 04:56] LABS: Hematocrit 25.9 % (37.0-53.0); Hemoglobin 8.7 g/dL (13.5-17.5); Mean Corpuscular HGB Conc 33.6 g/dL (31.5-36.5); Mean Corpuscular Volume 87 fL (80-100); NRBC ABSOLUTE 0.00 K/mm3 (0.00-0.02); NRBC Auto 0.0 /100 WBC (0.0-0.2); Platelet Count 174 K/mm3 (150-400); RDW Coefficient Variation 13.1 % (11.7-14.2); RDW Standard Deviation 41.4 fL (35.1-46.3)
[2025-02-20 05:30] VITALS: BP 132/85
[2025-02-20 05:37] LABS: Anion Gap 8.0 mmol/L (3-11); Blood Urea Nitrogen 24.0 mg/dL (8-24); CO2, Blood 30.0 mmol/L (21-32); Calcium, Blood 9.0 mg/dL (8.5-10.1); Chloride, Blood 99.0 mmol/L (98-108); Creatinine, Blood 1.57 mg/dL (0.60-1.20); Glucose, Blood 274.0 mg/dL (70-99); Potassium, Blood 4.1 mmol/L (3.5-5.5); Sodium, Blood 133.0 mmol/L (136-145)
[2025-02-20 07:32] VITALS: BP 135/88
[2025-02-20] MEDS ORDERED: Insulin Glargine 100 Unit/ML 3 ML SYR SC SCH ×2 (09:00)
[2025-02-20 16:09] VITALS: BP 140/92
--- NOTE | 2025-02-20 17:31 | NUR ---
SHIFT SUMMARY POD 2 R BKA ABCESS I&D. A&O x4, VSS. TOLERATING CONSISTANT CARB DIET WELL. STATES NO PAIN THIS SHIFT. R LEG w/WOUND VAC, SMALL AMOUNT OF RED DRAINAGE, SEAL INTACT. USES URINAL FOR VOID. CURRENTLY RESTING IN BED w/CALL LIGHT WITHIN REACH.
--- NOTE | 2025-02-20 18:54 | NUR ---
WOUND VAC CHANGED DUE TO LEAKAGE
[2025-02-20 19:44] VITALS: BP 155/90
--- NOTE | 2025-02-21 00:03 | NUR ---
BG BLOOD GLUCOSE 383 WITH HS BG CHECK. CONTACTED PROVIDER EDI GALLAGHER NP NOT TOO LONG AFTER RESULT WAS RECEIVED AND DID NOT RECEIVE A CALL BACK. SPOKE WITH PROVIDER AT 1775, NOTIFIED HIM OF PT BG OF 383, AND THAT PT RECEIVED LANTUS 62 UNITS AND HUMALOG [address] HS. NO ADDITIONAL ORDERS GIVEN AT THIS TIME.
--- NOTE | 2025-02-21 04:30 | NUR ---
SHIFT SUMMARY NO ACUTE CHANGES TO REPORT OVERNIGHT. PT HAS RESTED T/O THE NIGHT. WOUND VAC IN PLACE, DRESSING INTACT. IV ANTIBIOTICS PER ORDERS. PT NOW ON HIS HOME DOSE OF INSULIN PER ORDERS. BLOOD SUGARS STILL ELEVATED BUT TRENDING DOWN. PT BEING COMPLIANT WITH DIET. VITALS STABLE. BED IN LOWEST POSITION, CALL LIGHT WITHIN REACH.
[2025-02-21 05:37] LABS: Hematocrit 27.5 % (37.0-53.0); Hemoglobin 9.0 g/dL (13.5-17.5); Mean Corpuscular HGB Conc 32.7 g/dL (31.5-36.5); Mean Corpuscular Volume 86 fL (80-100); NRBC ABSOLUTE 0.00 K/mm3 (0.00-0.02); NRBC Auto 0.0 /100 WBC (0.0-0.2); Platelet Count 211 K/mm3 (150-400); RDW Coefficient Variation 13.0 % (11.7-14.2); RDW Standard Deviation 40.8 fL (35.1-46.3)
[2025-02-21 06:01] LABS: Anion Gap 7.0 mmol/L (3-11); Blood Urea Nitrogen 27.0 mg/dL (8-24); CO2, Blood 31.0 mmol/L (21-32); Calcium, Blood 9.3 mg/dL (8.5-10.1); Chloride, Blood 99.0 mmol/L (98-108); Creatinine, Blood 1.6 mg/dL (0.60-1.20); Glucose, Blood 298.0 mg/dL (70-99); Potassium, Blood 4.4 mmol/L (3.5-5.5); Sodium, Blood 133.0 mmol/L (136-145)
[2025-02-21 06:12] VITALS: BP 137/60
[2025-02-21 07:35] VITALS: BP 154/99
[2025-02-21] MEDS ORDERED: Insulin Glargine 100 Unit/ML 3 ML SYR SC SCH (09:00)
[2025-02-21] MEDS ORDERED: CeFAZolin Sodium 2,000 MG in NS 100 ML IV SCH (12:00)
[2025-02-21] MEDS ORDERED: Zinc Sulfate 220 MG Cap (Provides 50MG) PO SCH (13:30)
[2025-02-21 14:30] VITALS: BP 154/88
--- NOTE | 2025-02-21 17:49 | NUR ---
SHIFT SUMMARY POD3 IND OF R AKA, W/ WOUND VAC. PT IS A/OX4. TOLERATING DIET, DENIES N/V. PAIN MANAGED PER EMAR, PT REPORTS PAIN IS BETTER CONTROLLED WITH NEW DOSAGE. PT STATES "I MISS MY GREEN", WANTS TO SMOKE WEED FOR PAIN. EDUCATED PT THAT THIS IS A SMOKE FREE CAMPUS. VSS. NO ACUTE CHANGES T/O SHIFT. PLAN IS FOR PT TO DC TOMORROW W/ HOME HEALTH. WOUND VAC DRESSING CHANGED.
[2025-02-21 19:43] VITALS: BP 160/87
[2025-02-21] MEDS ORDERED: Insulin Human Lispro 100 Units/ML 3ML Syringe SC SCH (21:00)
[2025-02-22 05:01] VITALS: BP 140/70
[2025-02-22 05:45] LABS: Anion Gap 7.0 mmol/L (3-11); Blood Urea Nitrogen 29.0 mg/dL (8-24); CO2, Blood 32.0 mmol/L (21-32); Calcium, Blood 9.5 mg/dL (8.5-10.1); Chloride, Blood 101.0 mmol/L (98-108); Creatinine, Blood 1.4 mg/dL (0.60-1.20); Glucose, Blood 209.0 mg/dL (70-99); Potassium, Blood 4.2 mmol/L (3.5-5.5); Sodium, Blood 136.0 mmol/L (136-145)
--- NOTE | 2025-02-22 06:41 | NUR ---
SUMMARY PT HOPING FOR DISCHARGE TODAY,REPORTS PAIN MEDS EFFECTIVE,WOUND VAC INTACT AND PATENT WITH SX,VOIDING.
[2025-02-22 07:23] VITALS: BP 116/81
[2025-02-22] MEDS ORDERED: CEPH500 PO (14:36)
[2025-02-22 14:44] VITALS: BP 165/97
--- NOTE | 2025-02-22 14:56 | NUR ---
DISCHARGED HOME HEALTH SET UP, HOME WOUND VAC DELIVERED AND PLACED. SUCTION NOTED AT 125. BATTERY CHARGED, CORD PLACED IN WOUND VAC BOX. POERGLIDE DC'D, CATHETER INTACT. [facility] REVIEWED DC INSTRUCTIONS W/PT; VERBALIZED UNDERSTANDING. PT LEFT UNIT IN WC, ACCOMPANIED BY SPOUSE WHO HAD POSSESSIONS AND DC PAPERWORK IN HAND TO RIDE OUTSIDE.
--- NOTE | 2025-02-22 15:24 | NUR ---
KEFLEX RX CALLED IN TO [facility].
== END 2025-02-22 14:54 | disposition home health service (06) | DRG 492 ==
LOC: SURS 21:08
PROVIDERS: Internal Medicine; Orthopaedic Surgery; Student in an Organized Health Care Education/Training Program; ADMIT Internal Medicine
PROC: 3E03329 Introduction of Other Anti-infective into Peripheral Vein, Percutaneous Approach (ICD-10-PCS; 2025-02-18)
PROC: 0QBG0ZZ Excision of Right Tibia, Open Approach (ICD-10-PCS; principal; 2025-02-18 12:30)
DX: T87.43 Infection of amputation stump, right lower extremity (principal); M72.6 Necrotizing fasciitis; N17.9 Acute kidney failure, unspecified; Z68.1 Body mass index [BMI] 19.9 or less, adult; E78.5 Hyperlipidemia, unspecified; E66.9 Obesity, unspecified; M10.9 Gout, unspecified; G47.33 Obstructive sleep apnea (adult) (pediatric); J44.89 Other specified chronic obstructive pulmonary disease; E11.610 Type 2 diabetes mellitus with diabetic neuropathic arthropathy; B96.20 Unspecified Escherichia coli [E. coli] as the cause of diseases classified elsewhere; E11.65 Type 2 diabetes mellitus with hyperglycemia; N18.30 Chronic kidney disease, stage 3 unspecified; E11.22 Type 2 diabetes mellitus with diabetic chronic kidney disease; I12.9 Hypertensive chronic kidney disease with stage 1 through stage 4 chronic kidney disease, or unspecified chronic kidney disease; Z89.511 Acquired absence of right leg below knee; Z79.4 Long term (current) use of insulin; Z79.51 Long term (current) use of inhaled steroids; Z79.899 Other long term (current) drug therapy; Z79.84 Long term (current) use of oral hypoglycemic drugs; Z79.891 Long term (current) use of opiate analgesic; Z28.21 Immunization not carried out because of patient refusal
CPT/HCPCS: 36415; 80048; 80053; 80202; 82947; 85025; 85027; 85610; 87040; 87070; 87075; 87077; 87186; 87205; 94640; 94664; 94760; A9270; C1751; J0690; J1815; J2060; J2405; J2543; J2704; J3010; J3373; J7030; J7050

== ENCOUNTER 2025-03-05 19:06 | Emergency (ER) | payer OTHER ==
[~2025-03-05] VITALS: Ht 195.6 cm; Wt 113.4 kg
[~2025-03-05 19:06] MED LIST changes: +CEPH500 PO; +COLCRYS0.6 M1 PO; +NAPROXEN500 MG PO
[2025-03-05 20:13] LABS: BASOPHILS ABSOLUTE AUTO 0.10 K/mm3 (0.00-0.23); BASOPHILS PERCENT AUTO 1 % (0-2); EOSINOPHILS ABSOLUTE AUTO 0.51 K/mm3 (0.00-0.68); EOSINOPHILS PERCENT AUTO 4 % (0-6); Hematocrit 34.7 % (37.0-53.0); Hemoglobin 11.1 g/dL (13.5-17.5); IMMATURE GRAN ABSOLUTE AUTO 0.07 K/mm3 (0.00-0.10); IMMATURE GRAN PERCENT AUTO 1 % (0-1); LYMPHOCYTES ABSOLUTE AUTO 2.36 K/mm3 (0.84-5.20); LYMPHOCYTES PERCENT AUTO 19 % (21-46); MONOCYTES ABSOLUTE AUTO 0.72 K/mm3 (0.16-1.47); MONOCYTES PERCENT AUTO 6 % (4-13); Mean Corpuscular HGB Conc 32.0 g/dL (31.5-36.5); Mean Corpuscular Volume 87 fL (80-100); NEUTROPHILS ABSOLUTE AUTO 8.64 K/mm3 (1.96-9.15); NEUTROPHILS PERCENT AUTO 70 % (41-73); NRBC ABSOLUTE 0.00 K/mm3 (0.00-0.02); NRBC Auto 0.0 /100 WBC (0.0-0.2); Platelet Count 522 K/mm3 (150-400); RDW Coefficient Variation 14.0 % (11.7-14.2); RDW Standard Deviation 44.7 fL (35.1-46.3)
[2025-03-05 20:47] LABS: Alanine Aminotransfer (ALT/SGP 20.0 U/L (12-78); Albumin, Blood 3.5 g/dL (3.4-5.0); Albumin/Globulin Ratio 0.7 (0.8-1.8); Anion Gap 7.0 mmol/L (3-11); Aspartate Aminotrans (AST/SGOT 7.0 U/L (12-37); Bilirubin, Total 0.5 mg/dL (0.1-1.0); Blood Urea Nitrogen 39.0 mg/dL (8-24); CO2, Blood 28.0 mmol/L (21-32); Calcium, Blood 9.6 mg/dL (8.5-10.1); Chloride, Blood 101.0 mmol/L (98-108); Creatinine, Blood 1.12 mg/dL (0.60-1.20); Globulin, Blood 4.8 g/dL (2.2-4.0); Glucose, Blood 237.0 mg/dL (70-99); Potassium, Blood 4.9 mmol/L (3.5-5.5); Sodium, Blood 131.0 mmol/L (136-145); Total Protein, Blood 8.3 g/dL (6.4-8.2)
[2025-03-05 22:45] VITALS: BP 147/97
== END 2025-03-05 22:53 | disposition home or self-care (01) ==
LOC: ER 19:06
PROVIDERS: Physician Assistant
DX: T87.81 Dehiscence of amputation stump (principal); E11.40 Type 2 diabetes mellitus with diabetic neuropathy, unspecified; J45.909 Unspecified asthma, uncomplicated; I10 Essential (primary) hypertension; J44.9 Chronic obstructive pulmonary disease, unspecified; E78.5 Hyperlipidemia, unspecified; G47.30 Sleep apnea, unspecified; F17.210 Nicotine dependence, cigarettes, uncomplicated; Z88.8 Allergy status to other drugs, medicaments and biological substances; Z79.84 Long term (current) use of oral hypoglycemic drugs; Z79.4 Long term (current) use of insulin; Z79.899 Other long term (current) drug therapy; W19.XXXA Unspecified fall, initial encounter
CPT/HCPCS: 12004; 80053; 85025; 99283-25

== ENCOUNTER 2025-03-19 18:59 | Inpatient (IN) | payer OTHER ==
[~2025-03-19] VITALS: Ht 198.1 cm; Wt 126.1 kg
[~2025-03-19 18:59] MED LIST changes: +ALBU90OI INH; -ALBU90OI6 INH; +GABA300 PO; -GABA400 PO; +Insulin Glargine-Yfgn 100 Unit/mL 3 ML SYR SC SCH
[2025-03-19 19:47] LABS: BASOPHILS ABSOLUTE AUTO 0.06 K/mm3 (0.00-0.23); BASOPHILS PERCENT AUTO 1 % (0-2); EOSINOPHILS ABSOLUTE AUTO 0.50 K/mm3 (0.00-0.68); EOSINOPHILS PERCENT AUTO 7 % (0-6); Hematocrit 33.8 % (37.0-53.0); Hemoglobin 11.1 g/dL (13.5-17.5); IMMATURE GRAN ABSOLUTE AUTO 0.06 K/mm3 (0.00-0.10); IMMATURE GRAN PERCENT AUTO 1 % (0-1); LYMPHOCYTES ABSOLUTE AUTO 1.86 K/mm3 (0.84-5.20); LYMPHOCYTES PERCENT AUTO 25 % (21-46); MONOCYTES ABSOLUTE AUTO 0.52 K/mm3 (0.16-1.47); MONOCYTES PERCENT AUTO 7 % (4-13); Mean Corpuscular HGB Conc 32.8 g/dL (31.5-36.5); Mean Corpuscular Volume 85 fL (80-100); NEUTROPHILS ABSOLUTE AUTO 4.44 K/mm3 (1.96-9.15); NEUTROPHILS PERCENT AUTO 60 % (41-73); NRBC ABSOLUTE 0.00 K/mm3 (0.00-0.02); NRBC Auto 0.0 /100 WBC (0.0-0.2); RDW Coefficient Variation 14.5 % (11.7-14.2); RDW Standard Deviation 44.3 fL (35.1-46.3)
[2025-03-19 19:56] LABS: Alanine Aminotransfer (ALT/SGP 19.0 U/L (12-78); Albumin, Blood 3.4 g/dL (3.4-5.0); Albumin/Globulin Ratio 0.7 (0.8-1.8); Anion Gap 6.0 mmol/L (3-11); Aspartate Aminotrans (AST/SGOT 7.0 U/L (12-37); Bilirubin, Total 0.3 mg/dL (0.1-1.0); Blood Urea Nitrogen 38.0 mg/dL (8-24); CO2, Blood 27.0 mmol/L (21-32); Calcium, Blood 9.4 mg/dL (8.5-10.1); Chloride, Blood 102.0 mmol/L (98-108); Creatinine, Blood 1.19 mg/dL (0.60-1.20); Globulin, Blood 4.6 g/dL (2.2-4.0); Glucose, Blood 480.0 mg/dL (70-99); Potassium, Blood 4.9 mmol/L (3.5-5.5); Sodium, Blood 130.0 mmol/L (136-145); Total Protein, Blood 8.0 g/dL (6.4-8.2)
[2025-03-19 20:15] LABS: Platelet Count 274 K/mm3 (150-400)
[2025-03-19] MEDS ORDERED: FLU VACC TS2025-26(6MOS UP)/PF 45 MCG/0.5 ML SYRINGE IM SCH (23:35)
[2025-03-19] MEDS ORDERED: Ondansetron HCl 2 MG / ML 2ML Vial IV PRN (23:35)
[2025-03-20] MEDS ORDERED: Insulin Regular 100 UNIT/ML 10ML Vial SC SCH
[2025-03-20 01:15] VITALS: BP 170/108
[2025-03-20 01:45] LABS: Alanine Aminotransfer (ALT/SGP 17.0 U/L (12-78); Albumin, Blood 3.1 g/dL (3.4-5.0); Albumin/Globulin Ratio 0.7 (0.8-1.8); Anion Gap 10.0 mmol/L (3-11); Aspartate Aminotrans (AST/SGOT 7.0 U/L (12-37); Bilirubin, Total 0.3 mg/dL (0.1-1.0); Blood Urea Nitrogen 37.0 mg/dL (8-24); CO2, Blood 26.0 mmol/L (21-32); Calcium, Blood 9.3 mg/dL (8.5-10.1); Chloride, Blood 103.0 mmol/L (98-108); Creatinine, Blood 1.19 mg/dL (0.60-1.20); Globulin, Blood 4.4 g/dL (2.2-4.0); Glucose, Blood 349.0 mg/dL (70-99); Magnesium, Blood 1.9 mg/dL (1.6-2.4); Potassium, Blood 4.7 mmol/L (3.5-5.5); Sodium, Blood 134.0 mmol/L (136-145); Total Protein, Blood 7.5 g/dL (6.4-8.2)
[2025-03-20 01:50] LABS: Prothrombin Time Results 10.9 Sec (9.7-11.5)
[2025-03-20 01:51] LABS: BASOPHILS ABSOLUTE AUTO 0.09 K/mm3 (0.00-0.23); BASOPHILS PERCENT AUTO 1 % (0-2); EOSINOPHILS ABSOLUTE AUTO 0.57 K/mm3 (0.00-0.68); EOSINOPHILS PERCENT AUTO 7 % (0-6); Hematocrit 35.6 % (37.0-53.0); Hemoglobin 11.3 g/dL (13.5-17.5); IMMATURE GRAN ABSOLUTE AUTO 0.02 K/mm3 (0.00-0.10); IMMATURE GRAN PERCENT AUTO 0 % (0-1); LYMPHOCYTES ABSOLUTE AUTO 2.46 K/mm3 (0.84-5.20); LYMPHOCYTES PERCENT AUTO 32 % (21-46); MONOCYTES ABSOLUTE AUTO 0.65 K/mm3 (0.16-1.47); MONOCYTES PERCENT AUTO 8 % (4-13); Mean Corpuscular HGB Conc 31.7 g/dL (31.5-36.5); Mean Corpuscular Volume 88 fL (80-100); NEUTROPHILS ABSOLUTE AUTO 3.96 K/mm3 (1.96-9.15); NEUTROPHILS PERCENT AUTO 51 % (41-73); NRBC ABSOLUTE 0.00 K/mm3 (0.00-0.02); NRBC Auto 0.0 /100 WBC (0.0-0.2); Platelet Count 271 K/mm3 (150-400); RDW Coefficient Variation 14.5 % (11.7-14.2); RDW Standard Deviation 46.1 fL (35.1-46.3)
[2025-03-20] MEDS ORDERED: Insulin Glargine-Yfgn 100 Unit/mL 3 ML SYR SC ONE (02:20)
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
--- NOTE | 2025-03-20 06:28 | NUR ---
NURSE NOTE PATIENT REFUSING BLOOD SUGAR CHECK THIS AM. PATIENT STATES "I ONLY TAKE MY BLOOD SUGAR 3 TIMES A DAY." CAME OUT AND STATED "HE IS WILLING TO GET HIS BLOOD SUGAR TAKEN" FROM IN THE ROOM HE STATES "I DID NOT SAY THAT." PATIENT REFUSED BLOOD SUGAR AND STATED "TAKE THIS STUFF OFF OF ME IM LEAVING" PATIENT ADVISED HE COULD LEAVE AMA. PATIENT STATES "IM NOT GETTING THE SURGERY DONE BECAUSE I DONT WANT TO IM NOT GOING WITHOUT BREAKFAST AND IM NOT GOING WITHOUT LUNCH." PATIENT CONTINUES TO BE AGITATED AFTER I LEFT THE ROOM AND CONTINUES TO YELL AT HIS .
[2025-03-20] MEDS ORDERED: Polyethylene Glycol 3350 17 gm PO PRN (07:55)
[2025-03-20 08:16] VITALS: BP 179/100
[2025-03-20] MEDS ORDERED: DULoxetine HCL 30 MG Cap DR PO SCH (09:00)
[2025-03-20] MEDS ORDERED: Lactobacil 2-S.Thermo-Bifido 1 1 Cap PO SCH (09:00)
--- NOTE | 2025-03-20 10:00 | NUR ---
PT THROWING THINGS IN THE ROOM AND YELLING AT STAFF. SECURITY TO ROOM. DR MEJIA AT BEDSIDE TO ANSWER QUESTIONS REGARDING PLANS FOR CARE MOVING FORWARD AND PLANS FOR SURGERY. PT STATES "WE ARE STARVING HIM". PT EDUCATED ON IMPORTANCE OF REMAINING NPO PRIOR TO SURGERY. DR MILLER CALLED TO UPDATE ON PATIENTS CONCERNS. DR MILLER OKAY TO BE ON CLEAR LIQUID DIET UNTIL 1200 THEN BACK TO NPO. PT ASKING FOR AND PROVIDED JELLO AND WATER.
[2025-03-20] MEDS ORDERED: Albuterol HFA200 ACT/6.7 GM INH INH PRN (17:15)
[2025-03-20 17:39] VITALS: BP 159/96
--- NOTE | 2025-03-20 17:44 | NUR ---
SHIFT SUMMARY PT IS A/OX4. TRANSFERING WITH SBA TO WHEELCHAIR. PT IS VERY ANGRY AND AGGRESSIVE TOWARDS STAFF, SEE PREVIOUS NOTE. PT FREQUENTLY TELLS STAFF TO "FUCK OFF" WHEN ATTEMPTING TO PROVIDE CARE. AWAITING SURGERY THROUGHOUT THIS SHIFT. THIS RN NOTIFIED THIS EVENING THAT SURGERY WOULD BE POSTPONED UNTIL TOMORROW. AT BEDSIDE FOR MOST OF THIS SHIFT.
[2025-03-20 19:49] VITALS: BP 146/69
[2025-03-20] MEDS ORDERED: Docusate Sodium/Senna 1 Tab PO SCH (21:00)
[2025-03-21 03:50] VITALS: BP 114/66
--- NOTE | 2025-03-21 04:49 | NUR ---
SHIFT SUMMARY NOC PT A/O X 4. PLEASANT AND COOPERATIVE WITH CARE. VSS. NO ACUTE CHANGES TO REPORT. Q6H BLOOD GLUCOSE 348 WITH 4 UNITS R INSULIN GIVEN.. PT HAS BEEN NPO SINCE MIDNIGHT FOR R BKA REVISION. PT STATED EAGERNESS TO HAVE INCISION CLOSED UP. PT PAIN BEING MANAGED PER EMAR. PT CURRENTLY RESTING WITH SPOUSE BEDSIDE, BED IN LOWEST POSITION, AND CALL LIGHT WITHIN REACH.
[2025-03-21 05:17] LABS: Hematocrit 35.2 % (37.0-53.0); Hemoglobin 11.3 g/dL (13.5-17.5); Mean Corpuscular HGB Conc 32.1 g/dL (31.5-36.5); Mean Corpuscular Volume 87 fL (80-100); NRBC ABSOLUTE 0.00 K/mm3 (0.00-0.02); NRBC Auto 0.0 /100 WBC (0.0-0.2); Platelet Count 253 K/mm3 (150-400); RDW Coefficient Variation 14.6 % (11.7-14.2); RDW Standard Deviation 45.6 fL (35.1-46.3)
[2025-03-21 06:00] LABS: Albumin, Blood 3.0 g/dL (3.4-5.0); Anion Gap 8 mmol/L (3-11); Blood Urea Nitrogen 26 mg/dL (8-24); CO2, Blood 27 mmol/L (21-32); Calcium, Blood 9.8 mg/dL (8.5-10.1); Chloride, Blood 104 mmol/L (98-108); Creatinine, Blood 1.15 mg/dL (0.60-1.20); Glucose, Blood 201 mg/dL (70-99); Magnesium, Blood 2.0 mg/dL (1.6-2.4); Phosphorus, Blood 4.1 mg/dL (2.5-4.9); Potassium, Blood 4.0 mmol/L (3.5-5.5); Sodium, Blood 135 mmol/L (136-145)
[2025-03-21 07:20] VITALS: BP 124/67
[2025-03-21] MEDS ORDERED: Zinc Sulfate 220 MG Cap (Provides 50MG) PO SCH (09:00)
[2025-03-21] MEDS ORDERED: Colchicine 0.6 MG TAB PO SCH (09:00)
--- NOTE | 2025-03-21 17:52 | NUR ---
PATIENT RESTING IN BED THIS SHIFT. NO COMPLAINTS OF PAIN AFTER MORNING PAIN MED ADMINISTERED. PATIENT AGREEABLE TO SURGERY TOMORROW BUT STATED HE WILL GO HOME IF IT GETS PUSHED OFF AGAIN. PATIENT COOPERATIVE WITH CARE. ENCOURAGED TO CALL WITH ANY NEEDS
[2025-03-21] MEDS ORDERED: METF500 PO (18:20)
[2025-03-21] MEDS ORDERED: ZINC PO (20:14)
[2025-03-21] MEDS ORDERED: VITAMIN C PO (20:15)
[2025-03-21 20:41] VITALS: BP 111/61
[2025-03-21] MEDS ORDERED: DULoxetine HCL 30 MG Cap DR PO SCH (21:00)
[2025-03-21 23:25] LABS: Glucose, Blood 578 mg/dL (70-99)
[2025-03-21] MEDS ORDERED: Insulin Regular 100 UNIT/ML 10ML Vial IV ONE (23:55)
--- NOTE | 2025-03-22 00:40 | NUR ---
PT BLOOD SUGAR >500 PER POC GLUCOMETER, LAB DOUBLE VERIFIED WITH A READING OF 578. PROVIDER CONTACTED BY THIS RN AND 8U REG INSULIN ORDERED IV. PT STATES THAT "YOU GUYS ARE FREAKING OUT ABOUT NOTHING" THIS NURSE PROVIDED EDUCATION ON HYPERGLYCEMIA AND POTENTIAL RISKS IF LEFT UNTREATED. PT SEEMED FRUSTRATED BY THIS. EVENT PLANNING INTERN ORDERED 1HR AFTER INSULIN ADMINISTRATION.
--- NOTE | 2025-03-22 01:38 | NUR ---
PT HAD A BLOOD GLUCOSE 558, PROVIDER WAS NOTIFIED, INSULIN WAS GIVEN AND LAB REDRAW WAS AT 0130 03/22/2025, PT STATED "THAT IS THE LAST TIME AND IF I DO NOT HAVE SURGERY BY 5PM AM GOING TO LEAVE". PT WAS EDUCATED ON THE IMPORTANCE OF DIABETIC CARE CONTINUITY, DIET AND MEDICATION REGIMEN, TREATMENTS, AND TREATMENTS INCLUDING REGULAR GLUCOSE TESTING. PT STATED "i HAVE LET IT GET HIGH A THOUSAND AT HOME AND WAS JUST FINE". PROVIDER NOTIFIED.
[2025-03-22 01:51] LABS: Anion Gap 11.0 mmol/L (3-11); Blood Urea Nitrogen 35.0 mg/dL (8-24); CO2, Blood 25.0 mmol/L (21-32); Calcium, Blood 9.3 mg/dL (8.5-10.1); Chloride, Blood 99.0 mmol/L (98-108); Creatinine, Blood 1.31 mg/dL (0.60-1.20); Glucose, Blood 347.0 mg/dL (70-99); Potassium, Blood 4.5 mmol/L (3.5-5.5); Sodium, Blood 130.0 mmol/L (136-145)
[2025-03-22 04:28] VITALS: BP 144/71
--- NOTE | 2025-03-22 06:36 | NUR ---
PT INCREDIBLY RELUCTANT WITH CARE. 0000 BLOOD SUGAR WAS >500 PER POC GLUCOMETER AND RECHECKED BY BLOOD DRAW FOUND TO BE 578. PT STATES THAT HIS BLOOD SUGAR HAS GOTTEN ABOVE 1000 AND HE'S BEEN "FINE." THIS RN ATTEMPTED TO EDUCATE THE PT AND HE WAS UNRECEPTIVE STATING THAT "YOURE ALL MAKING A BIG DEAL OF NOTHING." SUGAR WAS RECHECKED VIA BMP AND FOUND TO BE 347, PT REFUSED MORNING BLOOD SUGAR CHECKS AND MAINTAINS THAT IF HE DOES NOT HAVE SURGERY BY 1700 TODAY THAT HE IS LEAVING AMA. PT MEDICATED 1X PER MAR FOR PAIN, DENIES PAIN SINCE PREVIOUS ADMINISTRATION. REST HAS BEEN PRIORITIZED IN HOPES THAT THE PATIENT IS MORE RECEPTIVE TO CARE FOR DAYSHIFT. CALL LIGHT WITHIN REACH, BED IN LOWEST POSITION.
[2025-03-22] MEDS ORDERED: Insulin Regular 100 UNIT/ML 10ML Vial IV ONE (07:30)
[2025-03-22 09:38] VITALS: BP 144/96
--- NOTE | 2025-03-22 12:22 | NUR ---
SPOKE WITH DR. GOMEZ. HE STATES THAT HIM AND ANGELA ARE ON TODAY FOR HIS PROCEDURE. HIS IS UNSURE WHEN IT WILL BE DUE TO LACK OF AVAILABLILITY IN THE OR AND OTHER EMERGENT PROCEDURES. HE STATES THAT HIM OR MILLER WILL BE COMING UP TO SPEAK WITH HIM.
--- NOTE | 2025-03-22 13:22 | NUR ---
JASON CAME UP AND SPOKE WITH THE PATIENT. PATIENT CHOSING TO LEAVE AMA AND NOT WAIT FOR POSSIBLE PROCEDURE TIME AND WOULD LIKE TO GO TO [place]. DR. MEJIA NOTIFIED. HE CAME TO BEDSIDE. PATIENT HAS BEEN PLEASANT WITH STAFF THIS SHIFT. IV REMOVED, AMA FORM SIGNED, ACCOUNT DEVELOPMENT ASSOCIATE NOTIFIED. PATIENT AND HIS COLLECTED BELONGINGS. PATIENT LEFT VIA WHEELCHAIR WITH HIS . NO SIGNS OR SYMPTOMS OF DISTRESS.
== END 2025-03-22 13:31 | disposition left against medical advice (07) | DRG 566 ==
LOC: ER 18:59 → ERHOLD 19:00 → MEDS 19:00
PROVIDERS: Emergency Medicine; Internal Medicine; Nurse Practitioner Acute Care; ADMIT Student in an Organized Health Care Education/Training Program
DX: T87.81 Dehiscence of amputation stump (principal); T87.43 Infection of amputation stump, right lower extremity; Y83.5 Amputation of limb(s) as the cause of abnormal reaction of the patient, or of later complication, without mention of misadventure at the time of the procedure; I10 Essential (primary) hypertension; G47.33 Obstructive sleep apnea (adult) (pediatric); J44.89 Other specified chronic obstructive pulmonary disease; E66.9 Obesity, unspecified; F17.210 Nicotine dependence, cigarettes, uncomplicated; M10.9 Gout, unspecified; E78.5 Hyperlipidemia, unspecified; E11.40 Type 2 diabetes mellitus with diabetic neuropathy, unspecified; Z53.29 Procedure and treatment not carried out because of patient's decision for other reasons; Z88.8 Allergy status to other drugs, medicaments and biological substances; Z79.84 Long term (current) use of oral hypoglycemic drugs; Z79.1 Long term (current) use of non-steroidal anti-inflammatories (NSAID); Z68.28 Body mass index [BMI] 28.0-28.9, adult
CPT/HCPCS: 36415; 80048; 80053; 80069; 82947; 83735; 85025; 85027; 85610; 94760; 99285; A9270; G0378; J1815; J2405; J7120